=== PATIENT | female | born 1985 | race Caucasian/White ===

== ENCOUNTER 2017-04-10 00:10 | Emergency (ER) | payer MEDICAID ==
[~2017-04-10] VITALS: Ht 160 cm; Wt 57.2 kg
--- NOTE | 2017-04-10 00:47 | NUR ---
DR DODSON INTO EAL PATIENT
--- NOTE | 2017-04-10 02:00 | NUR ---
Patient discharged to home in stable conditon. Written and verbal after care instructions given. Patient verbalizes understanding of instructions. WALKED OUT OF ER WITH NO DISTRESS NOTED
[2017-04-10 02:01] VITALS: BP 110/65
== END 2017-04-10 02:02 | disposition home or self-care (01) ==
LOC: ER 00:15
DX: S13.4XXA Sprain of ligaments of cervical spine, initial encounter (principal); S20.219A Contusion of unspecified front wall of thorax, initial encounter; Z88.2 Allergy status to sulfonamides; V49.9XXA Car occupant (driver) (passenger) injured in unspecified traffic accident, initial encounter; Y93.89 Activity, other specified; Y92.413 State road as the place of occurrence of the external cause; Y99.9 Unspecified external cause status
CPT/HCPCS: 71010; 93005; A4663